=== PATIENT | female | born 2000 | race Caucasian/White ===

== ENCOUNTER 2023-05-27 15:54 | Emergency (ER) | payer OTHER ==
[~2023-05-27] VITALS: Ht 162.6 cm; Wt 55.5 kg
[2023-05-27] MEDS ORDERED: PRENTAB53 PO (16:03)
[2023-05-27 18:22] LABS: BASO # 0.1 10^3/uL (0.0-0.2); BASO % 0.6 % (0.0-1.0); EOS # 0.1 10^3/uL (0.0-0.5); HEMATOCRIT 39.3 % (36.0-47.0); HEMOGLOBIN 13.3 g/dl (12.0-15.5); LYMPH # 2.2 10^3/uL (1.5-5.0); LYMPH % 26.8 % (24.0-44.0); MEAN CORPUSCULAR HEMOGLOBIN 30.6 pg (27.0-33.0); MEAN CORPUSCULAR HGB CONC 33.8 g/dl (32.0-36.5); MEAN CORPUSCULAR VOLUME 90.3 fl (80.0-96.0); MONO # 0.5 10^3/uL (0.0-0.8); MONO % 5.7 % (2.0-8.0); NEUTROPHILS # 5.3 10^3/uL (1.5-8.5); NEUTROPHILS % 65.7 % (36.0-66.0); PLATELET COUNT, AUTOMATED 360 10^3/uL (150-450); RED BLOOD COUNT 4.35 10^6/uL (4.00-5.40)
[2023-05-27 19:43] VITALS: BP 109/70; TEMP 98.4; O2SAT 98
[2023-05-27 20:23] LABS: CALCIUM LEVEL 9.7 MG/DL (8.5-10.1); CARBON DIOXIDE LEVEL 26 MMOL/L (20-31); CHLORIDE LEVEL 103 MMOL/L (98-107); GLUCOSE, FASTING 105 MG/DL (60-100); SODIUM LEVEL 138 MMOL/L (136-145)
[2023-05-27 20:25] LABS: BLOOD UREA NITROGEN 11 MG/DL (9-23); CREATININE FOR GFR 0.57 MG/DL (0.55-1.30); GLOMERULAR FILTRATION RATE > 60.0 (>60); POTASSIUM SERUM 4.5 MMOL/L (3.5-5.1)
[2023-05-27 21:00] LABS: HCG, SERUM QUANTITATIVE 111835.3 MIU/ML (<4.2)
[2023-05-27] MEDS ORDERED: ONDA4TAB6 PO (21:08)
== END 2023-05-27 21:29 | disposition home or self-care (01) ==
LOC: M ED 15:54
DX: O21.9 Vomiting of pregnancy, unspecified (principal); D64.9 Anemia, unspecified; Z3A.01 Less than 8 weeks gestation of pregnancy; Z79.83 Long term (current) use of bisphosphonates; Z79.810 Long term (current) use of selective estrogen receptor modulators (SERMs)

== ENCOUNTER → 2023-12-16 | Outpatient (CLI) | payer OTHER ==
[~2023-12-16] MED LIST: ONDA4TAB6 PO; PRENTAB53 PO
== END ==
LOC: M WHC 09:30
PROVIDERS: ATTEND Obstetrics & Gynecology
DX: Z34.83 Encounter for supervision of other normal pregnancy, third trimester (principal)